=== PATIENT | female | born 1995 | race Caucasian/White ===

== ENCOUNTER 2020-04-30 11:58 | Emergency (ER) | payer MEDICAID ==
[~2020-04-30] VITALS: Ht 165.1 cm; Wt 72.7 kg
[~2020-04-30 11:58] MED LIST: IBUP-2070 PO
[2020-04-30] MEDS ORDERED: METHOCARBAMOL 500 MG TABLET PO ONE (12:45)
[2020-04-30] MEDS ORDERED: LIDOCAINE 5% TRANSDERMAL PATCH TD ONE (12:45)
[2020-04-30] MEDS ORDERED: KETOROLAC TROMETHAMINE 30 MG/ML VIAL IM ONE (12:45)
[2020-04-30 13:30] VITALS: BP 110/65
== END 2020-04-30 13:30 | disposition home or self-care (01) ==
LOC: EMS 11:58
DX: M54.5 Low back pain (principal)
CPT/HCPCS: 96372; 99283; J1885